=== PATIENT | male | born 1975 | race African-American/Black ===

== ENCOUNTER 2016-08-19 05:50 | Day surgery (SDC) | payer OTHER ==
[~2016-08-19] VITALS: Ht 182.9 cm; Wt 79.4 kg
[~2016-08-19 05:50] MED LIST: LEVAQUIN500 MG PO
[2016-08-19] MEDS ORDERED: TYLENOL W/CODEI1 TAB PO (06:57)
[2016-08-19] MEDS ORDERED: OMEGA 3 FISH OI1 CAP PO (06:57)
[2016-08-19 06:59] VITALS: BP 119/79; Ht 182.9 cm; Wt 79.4 kg
[2016-08-19] MEDS ORDERED: VALIUM5 MG PO (08:31)
[2016-08-19] MEDS ORDERED: FLAGYL500 MG PO (08:31)
[2016-08-19] MEDS ORDERED: NORCO 7.5/325 T1 TA1 PO (08:31)
[2016-08-19] MEDS ORDERED: MIRALAX17 GM PO (08:34)
--- NOTE | 2016-08-19 09:13 | NUR ---
0905-RECEIVED PT FROM PACU AWAKE AND ALERT. VSS NO DISTRESS BANDAGE ON LOWER SACRUM CDI WITHOUT ANY DRAINAGE NOTED WILL CONTINUE TO MONITOR. NO N/V FULL LIQUID TRAY GIVEN AND MT DEW ORDERED. CALL LIGHT IN REACH
--- NOTE | 2016-08-19 11:00 | NUR ---
HOME HEALTH WITH [facility] IS SET UP. DR LEDEZMA CALLED AND STATES OK TO DC HOME NOW. STATES MAY REMOVE DRESSING PRIOR TO SHOWER PRIOR TO HOME HEALTH VISIT, PATIENT INFORMED. DISCHARGE INSTRUCTIONS AND RX GIVEN.
--- NOTE | 2016-08-19 11:03 | NUR ---
ORDER FOR TO SET UP DAILY PACKING CHANGES FOR PATIENT POST PERIRECTAL ABCESS DRAINAGE. PATIENT PLANS TO RETURN TO WORK NEXT WEDNESDAY 08/23. PATIENT DOES NOT HAVE A PREFERENCE OF HOME HEALTH AGENCY. HE STATES JUST WHO WILL TAKE HIS INSURANCE. I CONTACTED [employer] AND WAS TOLD THEY COULD NOT TAKE QUALCHOICE. I THEN CONTACTED [facility] AND SPOKE WITH JOSE. THEY WERE NOT ABLE TO TAKE HIM DUE TO HAVING NURSES OUT SICK FOR THE WEEKEND. JOSE CALLED [facility] FOR ME AND I HAVE CONTACTED [employer] THERE AND FAXED HIS INFORMATION. SHE CALLED ME BACK TO SAY THEY WOULD BE ABLE TO SEE HIM STARTING TOMORROW. WHEN THE PATIENT RETURNS TO WORK ON MONDAY THEY WILL CALL HIM TO SCHEDULE THEIR VISIT AND HE WILL LEAVE WORK AND MEET THEM AT THIS APARTMENT FOR HIS PACKING CHANGE. THIS IS AGREEABLE TO THE PATIENT AND [facility]. ORESTES AT [facility] STATED SHE WILL CONTACT THE PATIENT AFTER SHE PREAUTHORIZES WITH HIS INSURANCE TO LET HIM KNOW IF HER HAS A [employer] ETC. PATIENT STATES HE PLANS TO TAKE A CAB HOME AND HE WILL BE PAYING FOR IT HIMSELF. NO FURTHER DISCHARGE NEEDS IDENTIFIED AT THIS TIME.
--- NOTE | 2016-08-19 18:03 | OP ---
PATIENT NAME: GERALDINE GARCIA MEDICAL RECORD: [id number] :77 LOCATION:[facility] ADMISSION DATE: SURGEON: RENETTA LEDEZMA MD DATE OF OPERATION: 08/19/2016 SURGEON: Renetta Ledezma MD PREOPERATIVE DIAGNOSES: Left-sided perirectal abscess. POSTOPERATIVE DIAGNOSES: Left-sided perirectal abscess. PROCEDURE PERFORMED: Incision and drainage of a left-sided perirectal abscess. CULTURES: Aerobic and anaerobic abscess cultures. Case was contaminated. ESTIMATED BLOOD LOSS: 10 cc. COMPLICATIONS: None. OPERATIVE COURSE: After consent was obtained, the patient was taken to the operating room and placed in supine position on the operating table. Next, after general anesthesia was given, a timeout was taken to confirm the correct patient and procedure. The patient was then placed in lithotomy position. The perineum was prepped and draped in typical sterile fashion. A 30 cc of local anesthetic were injected in a perineal block. The patient had a perirectal abscess with a marked area of indurated tissue from the 1 o'clock position to the 6 o'clock position on the left side, there was an area of epithelialized tissue that was actively draining. This area was excised with a 15 blade scalpel, in a standard ellipse fashion. The abscess cavity was bluntly dissected with finger dissection. Anaerobic and aerobic cultures were obtained. The wound was copiously irrigated and suctioned. The wound was then packed with 1-inch iodoform gauze with half iodine and half peroxide. The rectum was serially dilated using [place] retractors, this was inspected. There was no obvious area of opening or drainage, although upon the insertion of the first retractor, pus was encountered and again there was likely some communication internally within the rectum. The rectum was then packed with Gelfoam and [place]. The patient was extubated and transferred to the PACU in stable condition. At the end of the case, all needle and instrument counts were correct. No complications occurred. TRANSINT:[id number] Voice Confirmation ID: [id number] DOCUMENT ID: [id number] RENETTA LEDEZMA MD at 1803 CC: [id number] DICTATION DATE: 08/19/16 0842 MUSIC HISTORIAN: 08/19/16 1427 [facility] 08/19/16 [facility] [address] [id number]
[2016-08-26 18:09] LABS: AEROBE ID Final report (())
== END 2016-08-19 11:00 | disposition home or self-care (01) ==
LOC: D.OPS 05:50 → D.PAN 12:00 → D.OPS 12:00
PROVIDERS: Surgery
DX: K61.0 Anal abscess (principal)

== ENCOUNTER 2019-06-16 09:15 | Emergency (ER) | payer MEDICAID ==
[~2019-06-16 09:15] MED LIST changes: +FLAGYL500 MG PO; +MIRALAX17 GM PO; +NORCO 7.5/325 T1 TA1 PO; +OMEGA 3 FISH OI1 CAP PO; +TYLENOL W/CODEI1 TAB PO; +VALIUM5 MG PO
[2019-06-16 09:24] VITALS: Ht 182.9 cm
[2019-06-16 10:30] LABS: APPEARANCE CLEAR (CLEAR); COLOR STRAW (YELLOW); SPECIFIC GRAVITY 1.005 (1.005-1.020)
[2019-06-16 10:31] LABS: BILIRUBIN NEGATIVE (NEGATIVE); GLUCOSE NEGATIVE (NEGATIVE); KETONE NEGATIVE (NEGATIVE); NITRITE NEGATIVE (NEGATIVE); PROTEIN NEGATIVE (NEGATIVE); UROBILINOGEN NORMAL (NORMAL)
[2019-06-16] MEDS ORDERED: BACLOFEN20 M1 PO (10:45)
[2019-06-16] MEDS ORDERED: VOLTAREN75 MG PO (10:45)
[2019-06-16 11:19] VITALS: BP 140/80
== END 2019-06-16 11:20 | disposition home or self-care (01) ==
LOC: D.ER 09:15
PROVIDERS: Family Medicine
DX: M54.5 Low back pain (principal); M62.838 Other muscle spasm; V89.2XXA Person injured in unspecified motor-vehicle accident, traffic, initial encounter; Y93.9 Activity, unspecified; Y92.9 Unspecified place or not applicable